=== PATIENT | male | born 1995 | race African-American/Black ===

== ENCOUNTER 2016-09-23 10:54 | Inpatient (IN) | payer MEDICAID ==
[~2016-09-23 10:54] MED LIST: DEXAMETHASONE 4 MG/ML VIAL IV ONE; EPHEDrine 50 MG/ML VIAL IM ONE; FENTANYL 250 MCG/5 ML VIAL IV ONE; GLYCOPYRROLATE 1 MG VIAL IM ONE; LIDOCAINE 100 MG PFS IV ONE; MIDAZOLAM 2 MG/2 ML VIAL IV ONE; NEOSTIGMINE 1 MG/1 ML (1:1000) INJ 10 ML MDV IM ONE; ONDANSETRON HCL 4 MG/2 ML VIAL IV ONE; PROPOFOL 200 MG/20 ML VIAL IV ONE; ROCURONIUM 50 MG/5 ML VIAL IV ONE
[2016-09-23] MEDS ORDERED: hydrALAZINE 20 MG/ML VIAL IV PRN (11:10)
[2016-09-23] MEDS ORDERED: MEPERIDINE 25 MG/ML TUBEX IV PRN (11:10)
[2016-09-23] MEDS ORDERED: ONDANSETRON HCL 4 MG/2 ML VIAL IV PRN (11:10)
[2016-09-23] MEDS ORDERED: ONDANSETRON HCL 4 MG ODT TAB PO PRN (11:10)
[2016-09-23] MEDS ORDERED: LABETALOL 20 MG/4 ML SYRINGE IV PRN (11:10)
[2016-09-23] MEDS ORDERED: FENTANYL 100 MCG/2 ML VIAL IV PRN ×2 (11:10)
[2016-09-23] MEDS ORDERED: HYDROmorphone 1 MG INJECTION IV PRN ×2 (11:10)
[2016-09-23] MEDS ORDERED: PROMETHAZINE 25 MG/ML VIAL IV PRN ×2 (11:10→15:21)
--- NOTE | 2016-09-23 11:10 | SC.ANESPOS ---
Post-Anesthesia Note LOC: [facility] Post-Anesthesia Assessment: Awake, Returned to Baseline, Hemodynamically Stable , Pain Control Adequate Phase I & II Recovery Complete: Yes Apparent Anesthesia Complication: No : N - Vital Signs Blood Pressure: 133/81 Pulse: 49 Resp Rate: 14 O2 Sat: 98 Temp: 96.8 F
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
[2016-09-23] MEDS ORDERED: Levofloxacin 500 mg/100 ml D5W 500 MG/100 ML RTU IV ONE (13:23)
--- NOTE | 2016-09-23 15:20 | HIMOPRPT ---
DATE OF PROCEDURE: 09/23/16 PREOPERATIVE DIAGNOSIS: Attention to colostomy. POSTOPERATIVE DIAGNOSIS: Attention to colostomy. PROCEDURE: Laparotomy and lysis of adhesions. SURGEON: Eren Venegas MD ANESTHESIA: General anesthesia. ANESTHESIOLOGIST: Dr. Micheal Church SPECIMEN: None SPONGE COUNT: Correct. PATIENT CONDITION: Stable. ESTIMATED BLOOD LOSS: 5 cc. INDICATIONS: This is a 21 year old male with previous sigmoid colon resection and colostomy formation for sigmoid volvulus. The patient and his father and caregiver request reversal of the colostomy. The indications, benefits and risks associated with the operation were discussed with the patient the patient' s father and the patient's caregiver. The risks include, but are not limited to , bleeding, infection, incisional hernia, deep vein thrombosis resultant pulmonary embolism, perioperative cardiac and respiratory morbidity and mortality, permanent colostomy, anastomotic dehiscence, chronic nonhealing wound. All questions were answered informed consent was obtained. FINDINGS: . The patient had markedly distended loops of small intestine throughout the abdominal cavity. Patient had thin filmy adhesions in the pelvis. The markedly distended loops of small intestine precluded safe reanastomosis of the colon. Decision was made to await resolution of these dilated loops of small intestine prior to attempts of colostomy reversal.. PROCEDURE IN DETAIL: Mr. Ortiz was taken to the operative suite [facility] placed in the supine position. General anesthesia was induced. The patient was placed in a modified lithotomy position. All pressure points were padded. A Daugherty catheter was inserted. And the colostomy was sutured closed. Hair was clipped free with electric clippers from the anterior abdomen. The anterior abdomen and the perirectal area was sterilely prepped and draped in usual fashion. All members of the surgical team were in agreement, correct patient correct procedure. A vertical midline incision was made the anterior abdomen carried down through the fascia layers entering the peritoneal cavity under direct visualization. The abdominal cavity was explored with findings as described above. Lysis of adhesions was carried out. Small intestine was run its entire length with no evidence of serosal tears of the small intestine. The rectal stump was identified. Due to the severity of the dilute dilated loops of small intestine decision was made to postpone reversal of the colostomy. The Seprafilm was placed the fascia was closed with running looped PDS suture tied at its midpoint. Skin was closed with 4 0 Monocryl subcuticular sutures. [employer] [facility] was placed in the lower pole of the incision. Dressings were applied. Patient was placed back in the supine position anesthesia was reversed and Mr. Ortiz was taken recovery having tolerated his procedure well.
[2016-09-23] MEDS ORDERED: MAGNESIUM HYDROXIDE 30 ML BOTTLE PO PRN (15:21)
[2016-09-23] MEDS ORDERED: DOCUSATE-SENNA CONCENTRATE TAB PO PRN (15:21)
[2016-09-23] MEDS ORDERED: IBUPROFEN 600 MG TAB PO PRN (15:21)
[2016-09-23] MEDS ORDERED: ACETAMINOPHEN 650 MG SUPP PR PRN (15:21)
[2016-09-23] MEDS ORDERED: SIMETHICONE 80 MG TAB PO PRN (15:21)
[2016-09-23] MEDS ORDERED: ACETAMINOPHEN 325 MG/TAB TABLET PO PRN (15:21)
[2016-09-23] MEDS ORDERED: FENTANYL 100 MCG/2 ML VIAL ONE (16:16)
[2016-09-23] MEDS: LR 1,000 ML IV SCH ×2 (17:22→18:47)
--- NOTE | 2016-09-23 17:38 | PCM.SURGRO ---
09/23/16 at 1735. Intraoperative findings discussed with the patient's father and caregiver. All questions were answered.
[2016-09-23] MEDS ORDERED: LACOSAMIDE 100 MG TAB PO ONE (22:00)
[2016-09-23] MEDS ORDERED: Vaccine Screening Complete SCH (22:00)
[2016-09-23] MEDS: GABAPENTIN 100 MG CAP PO SCH (22:28)
[2016-09-24] MEDS ORDERED: ENOXAPARIN 40 MG/0.4 ML PFS SQ SCH (03:30)
[2016-09-24] MEDS: LR 1,000 ML IV SCH ×2 (04:20→16:23)
[2016-09-24] MEDS: GABAPENTIN 100 MG CAP PO SCH ×3 (05:08→22:02)
--- NOTE | 2016-09-24 09:15 | PCM.SURGRO ---
- Subjective Post Op Day: 1 - Objective / Physical Exam Vital Signs: Temperature: 97.7 F (09/24/16 05:26) HR: 114 (09/24/16 05:26)RR: 18 (09/24/16 05 :26) BP: 136/80 (09/24/16 05:26)Pulse Ox: 96 (09/24/16 05:26) Respiratory: Normal - CTA Cardiovascular: Other (Mildly tachycardic) Gastrointestinal: Soft, Bowel Sounds, Other (Colostomy is viable). negative: Distended - Assessment and Plan (1) Colostomy care Acute Z43.3 - ENCOUNTER FOR ATTENTION TO COLOSTOMY Present on Admission: Yes Comment/Plan: Postop day 1. Status post lysis of adhesions. He was unable to have his colostomy reversed. Await full return of baseline function and recovery prior to discharge home. Continue anti seizure medications.
[2016-09-24] MEDS: PEG-ELECTROLYTE 17 GM PACK PO SCH (09:51)
[2016-09-24] MEDS: LACOSAMIDE 100 MG TAB PO SCH ×2 (09:53→22:16)
[2016-09-24] MEDS ORDERED: SODIUM CHLORIDE 0.9% 3 ML FLUSH FLUSH SCH (10:00)
[2016-09-24] MEDS: ENOXAPARIN 40 MG/0.4 ML PFS SQ SCH (18:00)
[2016-09-25] MEDS: GABAPENTIN 100 MG CAP PO SCH ×4 (07:42→21:52)
--- NOTE | 2016-09-25 08:11 | PCM.SURGRO ---
- Subjective Post Op Day: 2 - Objective / Physical Exam Vital Signs: Temperature: 99.5 F (09/25/16 05:11) HR: 96 (09/25/16 05:11)RR: 18 (09/25/16 05: 11) BP: 126/85 (09/25/16 05:11)Pulse Ox: 94 (09/25/16 05:11) Respiratory: Normal - CTA Cardiovascular: Regular rate and rhythm Gastrointestinal: Soft, Bowel Sounds, Other (Colostomy is viable). negative: Distended - Assessment and Plan (1) Colostomy care Acute Z43.3 - ENCOUNTER FOR ATTENTION TO COLOSTOMY Present on Admission: Yes Comment/Plan: Postop day 2. Await return of bowel function as would be evidence by gas and/or stool through the colostomy. Continue to advance diet as tolerated. Get Daugherty out today. Consider discharge home once bowel function returns. I discussed the plan with the patient's father.
[2016-09-25] MEDS: LACOSAMIDE 100 MG TAB PO SCH ×2 (08:35→21:52)
[2016-09-25] MEDS: PEG-ELECTROLYTE 17 GM PACK PO SCH (08:35)
[2016-09-25] MEDS: LR 1,000 ML IV SCH (13:44)
[2016-09-25] MEDS: ONDANSETRON HCL 4 MG/2 ML VIAL IV PRN (14:14)
[2016-09-25] MEDS: LORAZEPAM 1 MG TAB PO PRN (14:54)
[2016-09-25] MEDS: MORPHINE 2 MG/ML INJECTION IV PRN (15:28)
[2016-09-25] MEDS: ENOXAPARIN 40 MG/0.4 ML PFS SQ SCH (17:26)
[2016-09-26] MEDS: LR 1,000 ML IV SCH ×3 (00:04→17:07)
[2016-09-26] MEDS: ONDANSETRON HCL 4 MG/2 ML VIAL IV PRN (00:35)
[2016-09-26] MEDS: GABAPENTIN 100 MG CAP PO SCH ×3 (05:37→22:02)
[2016-09-26] MEDS: PEG-ELECTROLYTE 17 GM PACK PO SCH (09:43)
[2016-09-26] MEDS: LACOSAMIDE 100 MG TAB PO SCH ×2 (09:48→22:04)
--- NOTE | 2016-09-26 15:53 | PCM.SURGRO ---
- Subjective Chief Complaint: multiple liquid stools from colostomy Post Op Day: 3 (laparotomy and lysis of adhesions) Patient: Reports: Pain is less, Voiding without difficulty, Flatus, Bowel Movement, Nausea (Nausea earlier today but no vomiting.), Afebrile. Denies: Vomiting, Shortness of breath, Ambulating (Patient is nonambulatory.) - Objective / Physical Exam Vital Signs: Temperature: 98.2 F (09/26/16 14:00) HR: 85 (09/26/16 14:00)RR: 18 (09/26/16 14: 00) BP: 110/68 (09/26/16 14:00)Pulse Ox: 93 (09/26/16 14:00) General: Other (Patient at baseline mentation and activity level.) HEENT: Normal Respiratory: Normal - CTA Cardiovascular: Regular rate and rhythm Gastrointestinal: Soft, Bowel Sounds, Other (Colostomy is pink, moist and functioning.). negative: Distended, Tender, Guarding, Firm, Rigid, Hernia Extremities: negative: Swelling, Edema Psych/Mental Status: Other (patient at baseline activity.) - Assessment and Plan (1) Colostomy care Acute Z43.3 - ENCOUNTER FOR ATTENTION TO COLOSTOMY Present on Admission: Yes Comment/Plan: The patient is postoperative day #3. We will continue supportive care and advance diet. The current treatment plan was discussed at length with the patient's father and caregiver. All questions were answered.
[2016-09-26] MEDS: ENOXAPARIN 40 MG/0.4 ML PFS SQ SCH (17:08)
[2016-09-27] MEDS: LR 1,000 ML IV SCH ×2 (03:55→17:28)
[2016-09-27] MEDS: GABAPENTIN 100 MG CAP PO SCH ×3 (05:55→21:55)
[2016-09-27] MEDS: LACOSAMIDE 100 MG TAB PO SCH ×2 (08:04→21:55)
[2016-09-27] MEDS: PEG-ELECTROLYTE 17 GM PACK PO SCH (08:05)
--- NOTE | 2016-09-27 10:27 | PCM.SURGRO ---
- Subjective Chief Complaint: Patient is postoperative day #4. Post Op Day: 4 (laparotomy, lysis of adhesions) Patient: Reports: Bowel Movement (Colostomy had), Afebrile. Denies: No new complaints (No new events overnight.), Nausea, Vomiting (No vomiting recorded.) , Ambulating (Patient is nonambulatory.) - Objective / Physical Exam Vital Signs: Temperature: 97.3 F (09/27/16 05:25) HR: 81 (09/27/16 05:25)RR: 18 (09/27/16 05: 25) BP: 106/68 (09/27/16 05:25)Pulse Ox: 96 (09/27/16 05:25) General: Other (Patient moaning but does not appear to be in acute distress.) HEENT: Mucous membr. moist/pink Respiratory: Normal - CTA Cardiovascular: Regular rate and rhythm Gastrointestinal: Soft, Distended (Mildly distended.), Bowel Sounds, Other ( Colostomy is pink, moist and functioning. No bleeding noted.). negative: Tender Extremities: negative: Swelling, Edema Psych/Mental Status: Other (Patient currently moaning.) - Assessment and Plan (1) Colostomy care Acute Z43.3 - ENCOUNTER FOR ATTENTION TO COLOSTOMY Present on Admission: Yes Comment/Plan: The patient is postoperative day #4. We will continue supportive care and await return to normal bowel function. I will discuss discharge planning with his father and caregiver when they are present.
[2016-09-27] MEDS: LORAZEPAM 1 MG TAB PO PRN (10:34)
[2016-09-27] MEDS: MORPHINE 2 MG/ML INJECTION IV PRN ×2 (13:29→14:51)
--- NOTE | 2016-09-27 13:41 | PCM.SURGRO ---
09/27/16 at 1335. I discussed the current treatment plan with the patient's father and the patient's nurseNilda. All questions were answered.
[2016-09-27] MEDS: OXYCODONE HCL 5 MG TABLET PO PRN (14:37)
[2016-09-27] MEDS: Aluminum;Magnesium;Simethicone 30 ML UDC PO PRN (14:51)
[2016-09-27] MEDS: ENOXAPARIN 40 MG/0.4 ML PFS SQ SCH (17:28)
[2016-09-28] MEDS: LR 1,000 ML IV SCH ×2 (05:20→14:52)
[2016-09-28] MEDS: GABAPENTIN 100 MG CAP PO SCH ×3 (05:21→21:22)
[2016-09-28] MEDS: LORAZEPAM 1 MG TAB PO PRN (06:49)
[2016-09-28] MEDS: OXYCODONE HCL 5 MG TABLET PO PRN (06:49)
[2016-09-28] MEDS: LACOSAMIDE 100 MG TAB PO SCH ×2 (07:54→21:28)
[2016-09-28] MEDS: PEG-ELECTROLYTE 17 GM PACK PO SCH (07:54)
[2016-09-28] MEDS: MORPHINE 2 MG/ML INJECTION IV PRN (11:20)
[2016-09-28] MEDS: Aluminum;Magnesium;Simethicone 30 ML UDC PO PRN (11:21)
--- NOTE | 2016-09-28 12:48 | PCM.SURGRO ---
- Subjective Chief Complaint: abdominal distention Post Op Day: 5 (laparotomy, lysis of adhesions) Patient: Reports: Tolerating Regular Diet (The patient has been eating solid food without vomiting.), Flatus (Large amount of gas from the colostomy), Bowel Movement (The patient has had copious liquid stool output from colostomy twice today.), Afebrile, Ambulating (The patient is nonambulatory.), Other (The patient has more abdominal distention compared to yesterday.). Denies: Blood in Stool, Nausea, Vomiting, Shortness of breath - Objective / Physical Exam Vital Signs: Temperature: 97.9 F (09/28/16 06:33) HR: 78 (09/28/16 06:33)RR: 18 (09/28/16 06: 33) BP: 118/82 (09/28/16 06:33)Pulse Ox: 96 (09/28/16 06:33) General: Other (Patient at baseline mentation according to the patient's father. ) Respiratory: Normal - CTA Cardiovascular: Regular rate and rhythm Gastrointestinal: Soft, Bowel Sounds, Other (Colostomy is pink, moist and functioning.). negative: Distended (More distended today compared to yesterday. ), Tender, Guarding, Firm, Rigid Extremities: negative: Swelling, Edema Psych/Mental Status: Other (patient at baseline mentation.) - Assessment and Plan (1) Colostomy care Acute Z43.3 - ENCOUNTER FOR ATTENTION TO COLOSTOMY Present on Admission: Yes Comment/Plan: The patient is postoperative day #5 laparotomy and lysis of adhesions. He has had functioning of his colostomy with copious output. He has not had any vomiting. He does not appear to have a small bowel obstruction. The abdominal x rays were personally reviewed and appear to be at baseline chronically dilated loops of small intestine and colon. We will decrease intravenous analgesia as this may be contributing to ileus or distended loops of small intestine. The patient is not a candidate for a nasogastric tube secondary to his anatomy and in ability to keep it in place. I discussed the clinical scenario at length with the patient's father. All questions were answered. He voiced understanding and agreement with the plan.
--- NOTE | 2016-09-28 15:59 | DIRPT ---
CLINICAL DATA: Cerebral palsy. Status post sigmoid resection with colostomy in June 2016 for sigmoid volvulus. Status post laparotomy for attempted reversal of colostomy 5 days prior, which was aborted due to diffuse bowel dilatation. EXAM: Supine and upright portable abdominal radiographs. COMPARISON: 06/27/2016 abdominal radiograph. FINDINGS: There is a large volume of free air under the bilateral hemidiaphragms on the upright view. There is diffuse dilatation of the small and large bowel throughout the abdomen. The lung volumes are low. There is bibasilar atelectasis. The cardiomediastinal silhouette appears stable. No pneumothorax or pleural effusion. IMPRESSION: Large volume pneumoperitoneum, which is probably more than expected 5 days post laparotomy. Diffuse prominent bowel dilatation throughout the abdomen, most suggestive of severe adynamic ileus. Bowel perforation is suspected. Consider further evaluation with CT abdomen/pelvis as clinically warranted. These results were discussed in person at the time of interpretation on 09/28/2016 at 1:[address] Dempsey, who verbally acknowledged these results. Electronically Signed By: Yovani Melara M.D. On: 09/28/2016 13:19
[2016-09-28] MEDS: ENOXAPARIN 40 MG/0.4 ML PFS SQ SCH (17:33)
[2016-09-29] MEDS: LORAZEPAM 1 MG TAB PO PRN (02:48)
[2016-09-29] MEDS: OXYCODONE HCL 5 MG TABLET PO PRN ×2 (04:15→11:07)
[2016-09-29] MEDS: GABAPENTIN 100 MG CAP PO SCH ×3 (06:21→21:28)
[2016-09-29 07:26] LABS: AUTOMATED BASOPHIL 0.5 % (0-2); AUTOMATED LYMPH 32.2 % (17-44); AUTOMATED MONOCYTE 8.9 % (3-10); AUTOMATED NEUTROPHIL 55.4 % (45-76); MPV 8.8 fL (7.4-10.4)
[2016-09-29 07:43] LABS: BLOOD UREA NITROGEN 2 MG/DL (9-20); CALCIUM 8.8 MG/DL (8.4-10.2); CALCULATED OSMOLALITY 266 MOs/Kg (270-290); CHLORIDE 104 mEq/L (98-107); GLUCOSE 81 MG/DL (70-99); SODIUM LEVEL 141 mEq/L (137-146)
--- NOTE | 2016-09-29 07:55 | DIRPT ---
CLINICAL DATA: Postop EXAM: ABDOMEN - 2 VIEW COMPARISON: Yesterday FINDINGS: There is free intraperitoneal gas as was seen on yesterday's exam. Severe diffuse bowel distention is stable. No obvious pneumatosis. IMPRESSION: Stable severe bowel distention. Stable free intraperitoneal gas. Electronically Signed By: Colin Keys M.D. On: 09/29/2016 07:53
[2016-09-29] MEDS: PEG-ELECTROLYTE 17 GM PACK PO SCH (09:22)
[2016-09-29] MEDS: LACOSAMIDE 100 MG TAB PO SCH ×2 (09:22→21:29)
--- NOTE | 2016-09-29 14:08 | PCM.SURGRO ---
- Subjective Chief Complaint: none Post Op Day: 6 (laparotomy) Patient: Reports: Pain is less (Pain at incision appears to be less.), Voiding without difficulty, Flatus (A large amount of gas in colostomy.), Bowel Movement (Copious stool output from colostomy.), Afebrile. Denies: Nausea, Vomiting, Ambulating (Patient is nonambulatory.) - Objective / Physical Exam Vital Signs: Temperature: 96.1 F (09/29/16 05:15) HR: 96 (09/29/16 05:15)RR: 18 (09/29/16 05: 15) BP: 111/77 (09/29/16 05:15)Pulse Ox: 94 (09/29/16 05:15) General: Other (Patient at baseline) HEENT: Mucous membr. moist/pink Respiratory: Normal - CTA Cardiovascular: Regular rate and rhythm Gastrointestinal: Soft, Bowel Sounds (hypoactive), Tender (No apparent tenderness. Patient does not wince when abdomen is palpated.). negative: Distended (Much less distended. Softer in character.), Guarding, Firm, Rigid, Hernia Extremities: negative: Swelling, Edema Psych/Mental Status: Other (Patient at baseline activity.) Laboratory/Diagnostics Reviewed: 09/29/16 06:59 09/29/16 06:59 Final Report CLINICAL DATA: Postop EXAM: ABDOMEN - 2 VIEW COMPARISON: Yesterday FINDINGS: There is free intraperitoneal gas as was seen on yesterday's exam. Severe diffuse bowel distention is stable. No obvious pneumatosis. IMPRESSION: Stable severe bowel distention. Stable free intraperitoneal gas. Electronically Signed By: Coiln Keys M.D. On: 09/29/2016 07:53 - Assessment and Plan (1) Colostomy care Acute Z43.3 - ENCOUNTER FOR ATTENTION TO COLOSTOMY Present on Admission: Yes Comment/Plan: The patient's abdomen is less distended, has improved bowel sounds and has functioning of the colostomy. The patient's white blood cell count is not elevated and he has remained afebrile. There has been no increase in the possible pneumoperitoneum. There is no indication at this time that the patient has a perforation of the small or large intestine at this time. We will monitor closely. I will discuss with the patient's father when present.
[2016-09-29] MEDS: LR 1,000 ML IV SCH (14:15)
[2016-09-29 15:20] VITALS: BMI 16.1
--- NOTE | 2016-09-29 17:00 | PCM.SURGRO ---
09/29/16 at 1657. I discussed with the patient's TELETRAY OPERATOR, Marlene. The patient has had multiple episodes of gas in the colostomy bag and two moderate amounts ( half the bag filled) of liquid stool. The patient's abdomen remains soft and apparently non tender. I discussed with the patient's father, in person, all the current diagnostic findings and current treatment plan. All questions were answered. He voiced understanding and agreement with the above plan.
[2016-09-30] MEDS: GABAPENTIN 100 MG CAP PO SCH ×3 (05:24→21:05)
[2016-09-30] MEDS: PEG-ELECTROLYTE 17 GM PACK PO SCH (08:42)
[2016-09-30] MEDS: LACOSAMIDE 100 MG TAB PO SCH ×2 (08:42→21:05)
--- NOTE | 2016-09-30 09:12 | PCM.SURGRO ---
- Subjective Chief Complaint: none Post Op Day: 7 (laparotomy) Patient: Reports: Feels better (Patient's father reports that the patient is exhibiting all signs of feeling better. He is rocking gently, flipping his lip with his finger and shaking his sippy cup.), Bowel Movement (I examined the patient multiple times yesterday and he had liquid stool in his colostomy multiple times through out the day yesterday. The chart has only recorded 25 cc which is less than what I personally observed.), Ambulating (The patient is nonambulatory.). Denies: Blood in Stool, Nausea, Vomiting - Objective / Physical Exam Vital Signs: Temperature: 96.9 F (09/30/16 05:51) HR: 100 (09/30/16 05:51)RR: 18 (09/30/16 05 :51) BP: 103/61 (09/30/16 05:51)Pulse Ox: 93 (09/30/16 05:51) General: Other (At baseline activity.) HEENT: Mucous membr. moist/pink Respiratory: Normal - CTA Cardiovascular: Regular rate and rhythm Gastrointestinal: Soft, Bowel Sounds, Tender (No apparent tenderness identified. ), Other (The bag is half full with liquid stool.). negative: Distended ( Abdomen is no longer distended.), Guarding, Firm, Rigid, Hernia, Hepatosplenomegaly Extremities: negative: Swelling, Edema Psych/Mental Status: Other (The patient is at baseline level.) - Assessment and Plan (1) Colostomy care Acute Z43.3 - ENCOUNTER FOR ATTENTION TO COLOSTOMY Present on Admission: Yes Comment/Plan: The patient is postoperative day #7. There is no evidence of peritoneal signs. There is no evidence of intestinal perforation clinically. The patient has no nausea or vomiting. His colostomy bag is functioning. He remains afebrile and white blood cell is not elevated. We will advance diet slowly. I discussed the current findings and treatment plan at length with the patient's father in person. All questions were answered. He voiced understanding and agreement with the above plan.
[2016-09-30] MEDS: LR 1,000 ML IV SCH (13:20)
--- NOTE | 2016-09-30 20:48 | PCM.DCS92 ---
- Final/Secondary Discharge Diagnosis (1) Colostomy care Acute Z43.3 - ENCOUNTER FOR ATTENTION TO COLOSTOMY Present on Admission: Yes Discharge Disposition: Home Discharge Condition: Improved Cognitive Discharge Status: Other (Patient at baseline cognition.) Fuctional Discharge Status: Total Assistance Required Home Medications/ New Prescriptions: New Oxycodone Immediate Release [Oxycodone Immediate Release (OxyIR)] 5 mg PO Q6H PRN #20 tablet PRN Reason: Moderate To Severe Pain Continue Gabapentin [Neurontin] 100 mg PO BID PEG-Electrolytes (Miralax) [Miralax] 17 gm PO DAILY #1 each Lacosamide [Vimpat] 100 mg PO BID Lorazepam [Ativan] 1 mg PO DAILY PRN #30 tablet PRN Reason: AGITATION Diet at Discharge: As Tolerated, Regular Activity: Other (see below) (Up to chair daily as able.) Call Office For: Wound is Draining Pus, Fever over 101 F, Wound is Painful, Wound is Red, Pain Uncontrolled By Meds, Other (See Details) (No colostomy output for greater than twenty four hours.) Discontinue use of:: All Illegal Substances, All Types of Tobacco - DC Summary Notes Hospital Course Note:: Discharge summary on patient named ANAND KING admitted to [facility] on 09/23/16 by Eren Venegas DO. The patient underwent laparotomy. Please see operative report for full details. Postoperatively, the patient's diet and activity were advanced as able. He developed a postoperative ileus. Intravenous analgesics were held. The patient remained afebrile, normal white blood cell counts and had continued bowel sounds and colostomy output. On the day of discharge, he tolerated a regular diet with no nausea and vomiting, remained afebrile and had a large amount of stool and gas from his colostomy. His abdomen was scaphoid (this is baseline for this patient ) and soft with no apparent tenderness. He was identified as stable for discharge. Full and careful discharge instructions were discussed with the patient's father. All questions were answered. Date of discharge is 09/30/16. Discharge diagnosis: attention to colostomy, ileus Discharge condition: stable . Wound Care Surgical Site: Yes May Shower Starting:: 10/01/16 Remove Gauze Dressing in How Many Days?: 24 hours Ability To Perform Care (if applicable): No (Full care assistance at home) - Physical Exam Vital Signs: Initial Vitals Temperature 96.7 F L 09/23/16 11:46 Pulse Rate 64 09/23/16 11:46 Respiratory Rate 18 09/23/16 11:46 Blood Pressure 137/113 H 09/23/16 11:46 Pulse Oxygen Saturation 95 09/23/16 11:46 Constitutional: Other (The patient is at baseline activity according to the patient's father. The patient is quietly rocking forward and back, flipping his lip with his finger and responding to verbal stimuli by turning his head.) Oriented to: Unable to Test - HEENT Head: Other (at baseline) Oropharynx: Drooling (Drooling at baseline activity.) Respiratory: Normal - CTA - GI Auscultation: Normal Palpation: Other (No distention. No peritoneal signs. Abdomen is completely soft. Colostomy is pink, moist and functioning with the bag filled with stool and gas.). negative: Enlarged liver, Enlarged spleen, Fluid Wave, Mass, Tense Tenderness: Non tender (No apparent tenderness). negative: Guarding, Rebound, Rigidity - Musculoskeletal Back: Normal Extremities: Other (Contractures of all four extremities at patient's baseline.) . negative: Edema - Integumentary Skin: Normal, Dry Lymphatics: Normal - Neurologic Memory Impaired: Unable to Test Motor Function: Unable to Test Cranial Nerve: Unable to Test Cerebellar: Unable to Test
[2016-09-30 21:25] VITALS: BP 132/62; PULSE 98; TEMP 98.4
== END 2016-09-30 21:53 | disposition home or self-care (01) | DRG 336 ==
LOC: SDC 10:54 → MPS3 15:21
PROVIDERS: ADMIT Surgery; ATTEND Surgery
PROC: 0DNW0ZZ Release Peritoneum, Open Approach (ICD-10-PCS; principal; 2016-09-23 13:30)
DX: Z43.3 Encounter for attention to colostomy (principal); K91.3 Postprocedural intestinal obstruction; K66.0 Peritoneal adhesions (postprocedural) (postinfection); Z53.8 Procedure and treatment not carried out for other reasons; Y83.8 Other surgical procedures as the cause of abnormal reaction of the patient, or of later complication, without mention of misadventure at the time of the procedure; Z87.19 Personal history of other diseases of the digestive system; Z90.49 Acquired absence of other specified parts of digestive tract; Z79.899 Other long term (current) drug therapy
CPT/HCPCS: 51701; 74020; 80048; 85025; 96372; J1100; J1650; J1956; J2001; J2250; J2270; J2405; J2710; J3010; J3490